=== PATIENT | female | born 1985 | race Caucasian/White ===

== ENCOUNTER 2021-07-28 18:42 | Emergency (ER) | payer OTHER ==
[2021-07-28 19:39] VITALS: BP 119/62; PULSE 74; TEMP 98.1; BMI 19.8
== END 2021-07-28 22:11 | disposition home or self-care (01) ==
LOC: JERFT 18:42 → JER 18:42 → JERFT 22:11
DX: L03.011 Cellulitis of right finger (principal)
CPT/HCPCS: 99283-25

== ENCOUNTER 2022-12-10 11:49 | Emergency (ER) | payer OTHER ==
[2022-12-10 12:03] VITALS: BP 111/58; PULSE 67; RESP 18; TEMP 98.2; BMI 20.3
[2022-12-10 13:52] LABS: HCG,QUALITATIVE URINE Positive
[2022-12-10 13:54] LABS: PH,URINE 6.5 (5.0-8.0); URINE APPEARANCE CLEAR; URINE BILIRUBIN NEGATIVE (NEGATIVE); URINE COLOR YELLOW; URINE GLUCOSE (UA) NEGATIVE (NEGATIVE); URINE KETONE NEGATIVE (NEGATIVE); URINE LEUK ESTERASE NEGATIVE (NEGATIVE); URINE NITRITE NEGATIVE (NEGATIVE); URINE PROTEIN NEGATIVE (NEGATIVE); URINE UROBILINOGEN 0.2 mg/dL (0.2-1.0)
[2022-12-10 13:59] LABS: BASO % 0.6 % (0-2.0); EOS % 2.4 % (0-4.5); HEMATOCRIT 40.3 % (32.4-45.2); HEMOGLOBIN 13.8 GM/dL (10.7-15.3); MCH 29.8 pg (25.7-33.7); MCHC 34.3 g/dl (32.0-36.0); MEAN CELL VOLUME 87.1 fl (80-96); MEAN PLT VOLUME 8.4 fl (7.5-11.1); MONO % 4.8 % (3.8-10.2); NEUT % 70.2 % (42.8-82.8); PLATELET COUNT 222 10^3/uL (134-434); RBC 4.63 M/mm3 (3.60-5.2)
== END 2022-12-10 16:47 | disposition home or self-care (01) ==
LOC: JER 11:49
DX: O20.9 Hemorrhage in early pregnancy, unspecified (principal); O21.9 Vomiting of pregnancy, unspecified; Z3A.09 9 weeks gestation of pregnancy
CPT/HCPCS: 36415; 76817-TC; 81003; 84702; 84703; 85025; 86850; 86900; 86901; 99284-25

== ENCOUNTER 2023-03-25 09:05 | Emergency (ER) | payer OTHER ==
[2023-03-25 09:17] VITALS: BP 113/73; PULSE 81; RESP 18; TEMP 98.1; BMI 24.5
== END 2023-03-25 11:17 | disposition home or self-care (01) ==
LOC: JERFT 09:05
DX: O99.891 Other specified diseases and conditions complicating pregnancy (principal); R22.31 Localized swelling, mass and lump, right upper limb; L29.9 Pruritus, unspecified; M79.644 Pain in right finger(s); O26.40 Herpes gestationis, unspecified trimester; Z3A.00 Weeks of gestation of pregnancy not specified
CPT/HCPCS: 99282-25